=== PATIENT | male | born 1935 | race African-American/Black ===

== ENCOUNTER 2016-09-20 20:47 | Emergency (ER) | payer OTHER ==
[~2016-09-20] VITALS: Ht 177.8 cm; Wt 54.0 kg
[~2016-09-20 20:47] MED LIST: ADVAIR HFA115 MCG/21 INH; APAP500 PO; ASA5UEC PO; ASPIR 8181 MG PO; ASPIRIN EC325 M1 PO; ASPIRIN325 PO; B12INJ IM; BENICAR20 MG PO; CARVEDILOL12.5 MG PO; CARVEDILOL25 MG PO; CARVEDILOL6.25 MG PO; CELLCEPT500 MG PO; DEMADEX20 MG PO; DUONEB 2.5-0.5 M3 ML INH; FLOMAX0.4 MG PO; HYDRALAZINE 10M10 MG GT; HYDRALAZINE 10M10 MG PO; HYDROXYCHLOROQ200 M1 PO; IMDUR 30 MG TAB30 M1 PO; IRON325 PO; ISOSORBIDE DINI30 MG PO; K-DUR 20 MEQ T20 MEQ PO; LAMISIL250 MG PO; LASIX 40 MG TAB40 M2 PO; LEVAQUIN 500 M500 M2 PO; LOPERAMIDE 2 MG2 M1 PO; NORCO 5-325 TA1 EACH PO; PACERONE 200 M200 M1 PO; PRAVACHOL 20 MG20 M1 PO; PRAVACHOL20 MG PO; PREDNISONE 5 MG5 M1 PO; PROTONIX40 M1 PO; SODIUM BICARBO650 M3 PO; SPIRONOLACTONE25 M1 PO; TYLENOL325 MG PO; ZOLOFT25 MG PO
[2016-09-20 21:51] LABS: HEMATOCRIT 27.5 % (42.0-52.0); HEMOGLOBIN 8.8 gm/dL (14.0-18.0); MCHC 31.9 % (28.0-37.0); WBC 3.2 thou/uL (4.0-11.0)
[2016-09-20 21:53] LABS: MCH 26.4 pg (26.0-34.0); MCV 82.9 fL (80.0-100.0); PLATELET COUNT 84 thou/uL (150-400); RBC 3.31 mil/uL (4.50-6.00); RDW 19.6 % (10.5-14.5)
[2016-09-20 21:55] LABS: MANUAL DIFF YES
[2016-09-20 22:03] LABS: CALCIUM 8.1 mg/dL (8.5-10.1); CREATININE 1.8 mg/dL (0.6-1.3); POTASSIUM 5.6 mmol/L (3.5-5.1)
[2016-09-20 22:08] LABS: ALBUMIN 2.6 g/dL (3.4-5.0); TOTAL BILIRUBIN 0.5 mg/dL (<0.1-1.0); TOTAL PROTEIN 7.7 g/dL (6.4-8.2)
[2016-09-20 22:16] LABS: ABSOLUTE NEUTROPHILS 2.5 thou/uL (1.4-8.2); ANISOCYTOSIS 2+; LARGE PLATELETS FEW
[2016-09-21 00:08] LABS: URINE BILIRUBIN NEGATIVE (Negative); URINE BLOOD NEGATIVE (Negative); URINE COLOR YELLOW; URINE GLUCOSE-RANDOM* NEGATIVE (Negative); URINE KETONES NEGATIVE (Negative); URINE LEUKOCYTES-REFLEX NEGATIVE (Negative); URINE PROTEIN (DIPSTICK) 1+ (Negative)
[2016-09-21 00:23] LABS: CASTS None Seen /LPF (None Seen); HYALINE CASTS 4-10 Moderate /LPF (None Seen); SQUAMOUS None Seen /LPF (0-3)
[2016-09-21 00:25] LABS: CRYSTALS None Seen /LPF (None Seen); URINE RBC 0-2 Rare /HPF (0-2); URINE WBC-REFLEX 0-5 Rare /HPF (0-5)
[2016-10-04] MEDS ORDERED: CARVEDILOL12.5 MG PO (12:38)
[2016-10-04] MEDS ORDERED: DEMADEX20 MG PO ×2 (12:43→12:47)
[2016-10-18] MEDS ORDERED: COREG3.125 MG PO (14:11)
[2016-10-18] MEDS ORDERED: DEMADEX20 MG PO (14:11)
[2016-10-18] MEDS ORDERED: PREDNISONE 5 MG5 M1 PO (14:16)
[2016-10-18] MEDS ORDERED: PREDNISONE 10 M10 M1 PO (14:16)
== END 2016-09-21 01:19 | disposition home or self-care (01) ==
LOC: ER 20:47
PROVIDERS: Emergency Medicine
DX: K56.41 Fecal impaction (principal); I13.0 Hypertensive heart and chronic kidney disease with heart failure and stage 1 through stage 4 chronic kidney disease, or unspecified chronic kidney disease; N18.9 Chronic kidney disease, unspecified; I50.30 Unspecified diastolic (congestive) heart failure; D72.819 Decreased white blood cell count, unspecified; F17.210 Nicotine dependence, cigarettes, uncomplicated; Z85.46 Personal history of malignant neoplasm of prostate; Z88.8 Allergy status to other drugs, medicaments and biological substances